=== PATIENT | male | born 1965 | race Caucasian/White ===

== ENCOUNTER 2019-06-09 19:38 | Emergency (ER) | payer OTHER ==
[2019-06-09] MEDS ORDERED: IBUPROFEN600 MG PO (20:50)
[2019-06-09] MEDS ORDERED: AMLODIPINE BESY10 MG PO (21:12)
[2019-06-09 21:17] VITALS: BP 128/77
== END 2019-06-09 21:00 | disposition home or self-care (01) | DRG 914 ==
LOC: ED 19:38
DX: S29.002A Unspecified injury of muscle and tendon of back wall of thorax, initial encounter (principal); S16.9XXA Unspecified injury of muscle, fascia and tendon at neck level, initial encounter; I10 Essential (primary) hypertension; V43.52XA Car driver injured in collision with other type car in traffic accident, initial encounter